=== PATIENT | male | born 1955 | race African-American/Black ===

== ENCOUNTER 2019-10-04 15:03 | Inpatient (IN) ==
[2019-10-04 15:32] LABS: Basophils % 0.1 % (0.0-0.8); Hematocrit 41.9 VOL% (42.0-52.0); Hemoglobin 14.1 GM/DL (14.0-18.0); Immature Granulocytes % 0.9 %; Immature Granulocytes Absolute 0.16 #; Lymphocytes # 0.4 10*3/uL (1.4-4.0); Lymphocytes % 2.2 % (21.2-54.2); Mean Corpuscular HGB Conc 33.7 GM/DL (32-36); Mean Corpuscular Volume 102.9 FL (87-102); Mean Platelet Volume 9.8 FL (9.6-12.0); Monocytes % 5.6 % (1.7-12.7); Neutrophils % 91.2 % (38.7-73.9); Platelet Count 261 T/CUMM (130-400); Red Blood Count 4.07 MC/CUMM (3.8-5.5); Red Cell Distribution Width 11.4 % (9.3-17.3)
[2019-10-04] MEDS ORDERED: ASPIRIN 325 MG TABLET PO STA (15:36)
[2019-10-04] MEDS ORDERED: ALBUTEROL/IPRATROPIUM 3 ML NEB RESP TX STA (15:36)
[2019-10-04 15:43] LABS: INR 1.1; PT Patient Result 11.4 SECS (9.6-12.2); Partial Thromboplastin Time 29.7 SECS (20.8-36.0)
[2019-10-04 16:03] LABS: Albumin 2.9 G/DL (3.4-5.0); Bilirubin,Total 1.3 MG/DL (0.2-1.0); Calcium 9.1 MG/DL (8.5-10.1); Osmolality,Calculated 263.7 MOS/KG (273-304); Thyroid Stimulating Hormone 0.979 uIU/ml (0.358-3.74); Total Protein 7.8 G/DL (6.4-8.3)
[2019-10-04] MEDS ORDERED: VANCOMYCIN INJ 1,000 MG in SODIUM CHLORIDE 0.9% 250 ML IV STA (16:08)
[2019-10-04] MEDS ORDERED: PIPERACILLIN/TAZOBACTAM 3,375 MG in SODIUM CHLORIDE 0.9% 100 ML IV STA (16:08)
[2019-10-04] MEDS ORDERED: SODIUM CHLORIDE 0.9% 1,000 ML IV STA ×2 (16:10→17:48)
[2019-10-04 17:16] LABS: Band Neutrophils 1 % (0-10); Lymphocytes 2 % (20-55); Macrocytosis 2+; Platelet Estimate Normal; Segmented Neutrophils 91 % (50-85); Total Cells Counted 100
[2019-10-04] MEDS ORDERED: ALBUTEROL 2.5 MG/3 ML NEB RESP TX PRN (18:22)
[2019-10-04] MEDS ORDERED: LEVALBUTEROL 0.63 MG/3 ML NEB RESP TX PRN (18:56)
[2019-10-04 18:59] LABS: Hematocrit 37.9 VOL% (42.0-52.0); Hemoglobin 12.5 GM/DL (14.0-18.0)
[2019-10-04 20:02] LABS: Apearance,Urine CLOUDY (Clear); Bacteria,Urine Occasional /HPF (Few); Bilirubin,Urine Negative (Negative); Blood, Urine Large mg/dL (Negative); Glucose,Urine (UA) Negative (Negative); Ketones,Urine Negative (Negative); Mucus,Urine Occasional /LPF (Occasional); Nitrite,Urine Positive (Negative); Protein,Urine 30 MG/DL; RBC,Urine 27 /HPF (0-4); Squamous Epithelial Cell,Urine Occasional /HPF (0-10); Urine Color Yellow (Yellow); Urine Urobilinogen < 2.0 EU/DL (0.2-1.0); WBC,Urine 109 /HPF (0-6)
[2019-10-04 20:35] LABS: Barbiturates Screen,Urine Negative (Negative); Benzodiazepines Screen,Urine Negative (Negative); Cannabinoid Screen,Urine Negative (Negative); Opiate Screen,Urine Negative (Negative); Phencyclidine Screen,Urine Negative (Negative)
[2019-10-04] MEDS: LEVALBUTEROL 0.63 MG/3 ML NEB RESP TX SCH ×2 (21:05→23:56)
[2019-10-04 21:06] LABS: ABG Base Excess -5.6 MMOL/L (-2.5-2.5); ABG HCO3 19.7 MMOL/L (20-26); ABG PCO2 37.9 MM HG (35-48); ABG PH 7.333 (7.35-7.45); ABG PO2 52.7 MM HG (80-95); ABG TCO2 20.8 MMOL/L (23-27)
[2019-10-04] MEDS ORDERED: LIDOCAINE 2% 20 ML VIAL ONE (21:09)
[2019-10-04] MEDS ORDERED: HYDROmorphone 2 MG/1 ML VIAL IV ONE (21:28)
[2019-10-04] MEDS: SODIUM CHLORIDE 0.9% 1,000 ML IV SCH (21:32)
[2019-10-04] MEDS ORDERED: SODIUM CHLORIDE 0.9% 500 ML IV ONE ×2 (21:32→21:58)
[2019-10-04] MEDS: LEVOFLOXACIN INJ 750 MG in PREMIX 1 EACH IV SCH (22:08)
[2019-10-04] MEDS: PANTOPRAZOLE 40 MG VIAL IV SCH (22:08)
[2019-10-04] MEDS: NOREPINEPHRINE 8 MG in SODIUM CHLORIDE 0.9% 242 ML IV PRN (23:57)
[2019-10-05 01:02] LABS: Hematocrit 38.9 VOL% (42.0-52.0); Hemoglobin 12.9 GM/DL (14.0-18.0)
[2019-10-05] MEDS: ACETAMINOPHEN 325 MG TABLET PO PRN (01:04)
[2019-10-05] MEDS: SODIUM CHLORIDE 0.9% 1,000 ML IV SCH ×4 (03:37→21:56)
[2019-10-05] MEDS: LEVALBUTEROL 0.63 MG/3 ML NEB RESP TX SCH ×6 (04:07→23:05)
[2019-10-05 05:59] LABS: Hematocrit 39.2 VOL% (42.0-52.0); Hemoglobin 12.6 GM/DL (14.0-18.0)
[2019-10-05 06:02] LABS: Basophils # 0.1 10*3/uL (0.0-0.2); Basophils % 0.2 % (0.0-0.8); Hemoglobin 12.6 GM/DL (14.0-18.0); Immature Granulocytes Absolute 0.85 #; Lymphocytes # 0.8 10*3/uL (1.4-4.0); Mean Corpuscular HGB Conc 31.5 GM/DL (32-36); Mean Corpuscular Volume 110.2 FL (87-102); Mean Platelet Volume 10.2 FL (9.6-12.0); Neutrophils % 89.8 % (38.7-73.9); Platelet Count 229 T/CUMM (130-400); Red Blood Count 3.63 MC/CUMM (3.8-5.5); Red Cell Distribution Width 11.7 % (9.3-17.3); White Blood Count 28.3 T/CUMM (4-12)
[2019-10-05 06:26] LABS: Alanine Aminotransferase 10 U/L (16-61); Albumin 2.2 G/DL (3.4-5.0); Alkaline Phosphatase 91 U/L (45-117); Aspartate Amino Transferase 19 U/L (0-37); Blood Urea Nitrogen 16 MG/DL (7-18); Calcium 8.3 MG/DL (8.5-10.1); Estimated Glom Filtration Rate 47 ML/MIN; Glucose 102 MG/DL (74-106); HDL Cholesterol 36 MG/DL (40-60); Osmolality,Calculated 270.1 MOS/KG (273-304); Risk Ratio 2.72; Total Protein 7.2 G/DL (6.4-8.3); Triglycerides 63 MG/DL (2-150); VLDL CHOLESTEROL 12.6 MG/DL
[2019-10-05] MEDS ORDERED: MAGNESIUM SULF RIDER 50 ML IV ONE (06:32)
[2019-10-05 06:46] LABS: Band Neutrophils 31 % (0-10); Lymphocytes 6 % (20-55); Metamyelocytes 2 %; Segmented Neutrophils 59 % (50-85); Total Cells Counted 100
[2019-10-05 06:47] LABS: Anisocytosis 1+; Macrocytosis 2+; Platelet Estimate Normal
[2019-10-05 06:48] LABS: Smudge Cells Few
[2019-10-05] MEDS: PANTOPRAZOLE 40 MG VIAL IV SCH ×2 (08:07→21:15)
[2019-10-05 09:58] LABS: Amylase,Pleural Fluid 143 U/L; Total Protein,Pleural Fluid 6.3 G/DL
[2019-10-05] MEDS: metroNIDAZOLE INJ 500 MG in PREMIX 1 EACH IV SCH ×2 (10:10→18:24)
[2019-10-05] MEDS: MAGNESIUM SULF RIDER 2 GM in PREMIX 1 EACH IV PRN (10:12)
[2019-10-05 10:21] LABS: Lymphocytes,Pleural Fluid 96 %; Monocytes,Pleural Fluid 2 %; Neutrophils,Pleural Fluid 2 %; RBC,Pleural Fluid 69731 T/CUMM
[2019-10-05 11:11] LABS: Hematocrit 40.1 VOL% (42.0-52.0); Hemoglobin 12.6 GM/DL (14.0-18.0)
[2019-10-05] MEDS ORDERED: LORazepam 2 MG/1 ML VIAL IV PRN (11:20)
[2019-10-05] MEDS: THIAMINE 100 MG TABLET PO SCH (12:06)
[2019-10-05] MEDS: FOLIC ACID 1 MG TABLET PO SCH (12:06)
[2019-10-05] MEDS: MULTIVITAMIN (CENTRUM) TABLET PO SCH (12:06)
[2019-10-05] MEDS ORDERED: VANCOMYCIN INJ 1,000 MG in SODIUM CHLORIDE 0.9% 250 ML IV SCH (17:00)
[2019-10-05] MEDS: ENOXAPARIN 40 MG/0.4 ML SYRINGE SUBCUT SCH (21:15)
[2019-10-05] MEDS: LEVOFLOXACIN INJ 750 MG in PREMIX 1 EACH IV SCH (21:23)
[2019-10-06 01:20] LABS: Basophils # 0.1 10*3/uL (0.0-0.2); Basophils % 0.2 % (0.0-0.8); Hematocrit 35.9 VOL% (42.0-52.0); Hemoglobin 11.8 GM/DL (14.0-18.0); Immature Granulocytes % 0.8 %; Lymphocytes # 1.3 10*3/uL (1.4-4.0); Lymphocytes % 5.5 % (21.2-54.2); Mean Corpuscular HGB Conc 32.9 GM/DL (32-36); Mean Corpuscular Volume 106.8 FL (87-102); Mean Platelet Volume 9.8 FL (9.6-12.0); Monocytes % 8.4 % (1.7-12.7); Neutrophils % 85.1 % (38.7-73.9); Platelet Count 214 T/CUMM (130-400); Red Blood Count 3.36 MC/CUMM (3.8-5.5); Red Cell Distribution Width 11.6 % (9.3-17.3); White Blood Count 24.2 T/CUMM (4-12)
[2019-10-06 01:38] LABS: Albumin 1.6 G/DL (3.4-5.0); Bilirubin,Total 0.6 MG/DL (0.2-1.0); Calcium 7.9 MG/DL (8.5-10.1); Total Protein 5.8 G/DL (6.4-8.3)
[2019-10-06 01:47] LABS: Band Neutrophils 1 % (0-10); Lymphocytes 3 % (20-55); Platelet Estimate Normal; Segmented Neutrophils 95 % (50-85); Total Cells Counted 100
[2019-10-06] MEDS ORDERED: AMIODARONE INJ 150 MG in DEXTROSE 5% 100 ML IV ONE (01:50)
[2019-10-06] MEDS ORDERED: AMIODARONE 150 MG/3 ML VIAL ONE (01:55)
[2019-10-06 01:57] LABS: Macrocytosis Slight; Polychromasia Slight
[2019-10-06] MEDS: metroNIDAZOLE INJ 500 MG in PREMIX 1 EACH IV SCH ×3 (02:15→17:40)
[2019-10-06] MEDS: POTASSIUM CHLORIDE RIDER 10 MEQ in PREMIX 1 EACH IV PRN ×2 (02:39→04:12)
[2019-10-06] MEDS ORDERED: AMIODARONE INJ 450 MG in DEXTROSE 5% 241 ML IV SCH (03:00)
[2019-10-06] MEDS: LEVALBUTEROL 0.63 MG/3 ML NEB RESP TX SCH ×6 (03:13→22:50)
[2019-10-06] MEDS: NOREPINEPHRINE 8 MG in SODIUM CHLORIDE 0.9% 242 ML IV PRN (04:15)
[2019-10-06] MEDS: ACETAMINOPHEN 325 MG TABLET PO PRN ×2 (04:55→09:06)
[2019-10-06] MEDS: SODIUM CHLORIDE 0.9% 1,000 ML IV SCH ×3 (05:06→22:08)
[2019-10-06] MEDS ORDERED: PANTOPRAZOLE 40 MG VIAL IV SCH (09:00)
[2019-10-06] MEDS: AMIODARONE INJ 450 MG in DEXTROSE 5% 241 ML IV SCH (09:05)
[2019-10-06] MEDS: MEROPENEM 500 MG in SODIUM CHLORIDE 0.9% 100 ML IV SCH ×3 (09:05→20:33)
[2019-10-06] MEDS: FOLIC ACID 1 MG TABLET PO SCH (09:06)
[2019-10-06] MEDS: THIAMINE 100 MG TABLET PO SCH (09:06)
[2019-10-06] MEDS: MULTIVITAMIN (CENTRUM) TABLET PO SCH (09:06)
[2019-10-06] MEDS: ENOXAPARIN 40 MG/0.4 ML SYRINGE SUBCUT SCH (20:32)
[2019-10-06] MEDS: LEVOFLOXACIN INJ 750 MG in PREMIX 1 EACH IV SCH (20:36)
[2019-10-07] MEDS: AMIODARONE INJ 450 MG in DEXTROSE 5% 241 ML IV SCH (02:17)
[2019-10-07] MEDS: metroNIDAZOLE INJ 500 MG in PREMIX 1 EACH IV SCH ×3 (02:18→17:39)
[2019-10-07] MEDS: LEVALBUTEROL 0.63 MG/3 ML NEB RESP TX SCH ×5 (02:59→19:48)
[2019-10-07] MEDS: MEROPENEM 500 MG in SODIUM CHLORIDE 0.9% 100 ML IV SCH ×4 (03:30→21:00)
[2019-10-07 05:51] LABS: Basophils % 0.1 % (0.0-0.8); Eosinophils # 0.1 10*3/uL (0.0-0.87); Eosinophils % 0.4 % (0.00-10.9); Hemoglobin 11.7 GM/DL (14.0-18.0); Immature Granulocytes % 0.5 %; Immature Granulocytes Absolute 0.07 #; Lymphocytes # 1.2 10*3/uL (1.4-4.0); Lymphocytes % 8.4 % (21.2-54.2); Mean Corpuscular HGB Conc 32.5 GM/DL (32-36); Mean Corpuscular Volume 105.9 FL (87-102); Mean Platelet Volume 10.3 FL (9.6-12.0); Monocytes % 11.1 % (1.7-12.7); Neutrophils % 79.5 % (38.7-73.9); Platelet Count 214 T/CUMM (130-400); Red Cell Distribution Width 11.9 % (9.3-17.3); White Blood Count 14.7 T/CUMM (4-12)
[2019-10-07 06:13] LABS: Albumin 1.7 G/DL (3.4-5.0); Bilirubin,Total 1.4 MG/DL (0.2-1.0); Calcium 8.5 MG/DL (8.5-10.1); Osmolality,Calculated 274.7 MOS/KG (273-304); Total Protein 5.8 G/DL (6.4-8.3)
[2019-10-07] MEDS: SODIUM CHLORIDE 0.9% 1,000 ML IV SCH (06:36)
[2019-10-07] MEDS: MAGNESIUM SULF RIDER 2 GM in PREMIX 1 EACH IV PRN (07:20)
[2019-10-07] MEDS: MULTIVITAMIN (CENTRUM) TABLET PO SCH (08:55)
[2019-10-07] MEDS: FOLIC ACID 1 MG TABLET PO SCH (08:55)
[2019-10-07] MEDS: THIAMINE 100 MG TABLET PO SCH (08:55)
[2019-10-07] MEDS: PANTOPRAZOLE 40 MG TABLET PO SCH (08:55)
[2019-10-07] MEDS: AMIODARONE 200 MG TABLET PO SCH ×2 (10:15→21:13)
[2019-10-07 15:01] LABS: CEA, Pleural Fluid 53 ng/mL
[2019-10-07] MEDS: ENOXAPARIN 40 MG/0.4 ML SYRINGE SUBCUT SCH (21:15)
[2019-10-08] MEDS: LEVALBUTEROL 0.63 MG/3 ML NEB RESP TX SCH ×7 (00:31→23:46)
[2019-10-08] MEDS: metroNIDAZOLE INJ 500 MG in PREMIX 1 EACH IV SCH ×3 (02:00→17:18)
[2019-10-08] MEDS: MEROPENEM 500 MG in SODIUM CHLORIDE 0.9% 100 ML IV SCH ×4 (03:27→21:27)
[2019-10-08 05:39] LABS: Basophils % 0.2 % (0.0-0.8); Eosinophils # 0.1 10*3/uL (0.0-0.87); Eosinophils % 0.9 % (0.00-10.9); Hematocrit 37.6 VOL% (42.0-52.0); Hemoglobin 12.2 GM/DL (14.0-18.0); Immature Granulocytes % 0.9 %; Lymphocytes # 1.4 10*3/uL (1.4-4.0); Lymphocytes % 12.9 % (21.2-54.2); Mean Corpuscular HGB Conc 32.4 GM/DL (32-36); Mean Corpuscular Volume 107.7 FL (87-102); Mean Platelet Volume 10.2 FL (9.6-12.0); Monocytes % 15.9 % (1.7-12.7); Neutrophils % 69.2 % (38.7-73.9); Platelet Count 225 T/CUMM (130-400); Red Blood Count 3.49 MC/CUMM (3.8-5.5); Red Cell Distribution Width 12.1 % (9.3-17.3); White Blood Count 10.9 T/CUMM (4-12)
[2019-10-08 06:03] LABS: Eosinophils 2 % (0-10); Hypochromasia 1+; Lymphocytes 15 % (20-55); Macrocytosis Slight; Segmented Neutrophils 71 % (50-85); Total Cells Counted 100
[2019-10-08 06:12] LABS: Calcium 8.7 MG/DL (8.5-10.1); Osmolality,Calculated 273.7 MOS/KG (273-304)
[2019-10-08] MEDS ORDERED: PROMETHAZINE 25 MG/1 ML VIAL IM ONE (07:00)
[2019-10-08] MEDS ORDERED: MEPERIDINE 50 MG/1 ML VIAL IM ONE (07:00)
[2019-10-08] MEDS ORDERED: MIDAZOLAM 2 MG/2 ML VIAL ONE (07:21)
[2019-10-08] MEDS ORDERED: MIDAZOLAM 2 MG/2 ML VIAL IV ONE (07:30)
[2019-10-08] MEDS ORDERED: LIDOCAINE 1% 20 ML VIAL MISC INJ ONE (07:30)
[2019-10-08] MEDS ORDERED: LIDOCAINE 2% VISCOUS 100 ML BOTTLE SWISH/SPIT ONE (07:30)
[2019-10-08] MEDS ORDERED: LIDOCAINE 2% 20 ML VIAL RESP TX ONE (07:30)
[2019-10-08] MEDS: MULTIVITAMIN (CENTRUM) TABLET PO SCH (09:22)
[2019-10-08] MEDS: THIAMINE 100 MG TABLET PO SCH (09:22)
[2019-10-08] MEDS: AMIODARONE 200 MG TABLET PO SCH ×2 (09:22→21:26)
[2019-10-08] MEDS: FOLIC ACID 1 MG TABLET PO SCH (09:22)
[2019-10-08] MEDS: PANTOPRAZOLE 40 MG TABLET PO SCH (09:22)
[2019-10-08] MEDS: LEVOFLOXACIN 750 MG TABLET PO SCH (09:22)
[2019-10-08] MEDS ORDERED: DOXYCYCLINE HYCLATE INJ 200 MG, LIDOCAINE 1% INJ 20 ML in STERILE WATER INJ 30 ML INTRAPLEUR ONE (13:00)
[2019-10-08] MEDS ORDERED: MAGNESIUM HYDROXIDE SUSP 30 ML UDCUP PO ONE (14:34)
[2019-10-08] MEDS: ENOXAPARIN 40 MG/0.4 ML SYRINGE SUBCUT SCH (21:26)
[2019-10-09] MEDS: MEROPENEM 500 MG in SODIUM CHLORIDE 0.9% 100 ML IV SCH ×4 (02:08→21:27)
[2019-10-09] MEDS: metroNIDAZOLE INJ 500 MG in PREMIX 1 EACH IV SCH ×3 (03:02→17:24)
[2019-10-09] MEDS: LEVALBUTEROL 0.63 MG/3 ML NEB RESP TX SCH ×5 (03:49→19:50)
[2019-10-09 04:51] LABS: Basophils % 0.2 % (0.0-0.8); Eosinophils # 0.2 10*3/uL (0.0-0.87); Eosinophils % 1.7 % (0.00-10.9); Hematocrit 35.9 VOL% (42.0-52.0); Hemoglobin 11.6 GM/DL (14.0-18.0); Immature Granulocytes % 0.7 %; Immature Granulocytes Absolute 0.07 #; Lymphocytes # 1.7 10*3/uL (1.4-4.0); Lymphocytes % 17.1 % (21.2-54.2); Mean Corpuscular HGB Conc 32.3 GM/DL (32-36); Mean Corpuscular Volume 106.2 FL (87-102); Mean Platelet Volume 10.4 FL (9.6-12.0); Monocytes % 20.7 % (1.7-12.7); Neutrophils % 59.6 % (38.7-73.9); Platelet Count 244 T/CUMM (130-400); Red Blood Count 3.38 MC/CUMM (3.8-5.5); Red Cell Distribution Width 12.4 % (9.3-17.3); White Blood Count 10.1 T/CUMM (4-12)
[2019-10-09 05:11] LABS: Band Neutrophils 2 % (0-10); Eosinophils 6 % (0-10); Lymphocytes 12 % (20-55); Segmented Neutrophils 67 % (50-85); Total Cells Counted 100
[2019-10-09 05:12] LABS: Hypochromasia 1+; Macrocytosis Slight; Target Cells Slight
[2019-10-09 05:20] LABS: Calcium 8.8 MG/DL (8.5-10.1); Osmolality,Calculated 274.7 MOS/KG (273-304)
[2019-10-09] MEDS: AMIODARONE 200 MG TABLET PO SCH ×2 (08:54→21:27)
[2019-10-09] MEDS: LEVOFLOXACIN 750 MG TABLET PO SCH (08:54)
[2019-10-09] MEDS: PANTOPRAZOLE 40 MG TABLET PO SCH (08:54)
[2019-10-09] MEDS: MULTIVITAMIN (CENTRUM) TABLET PO SCH (08:54)
[2019-10-09] MEDS: THIAMINE 100 MG TABLET PO SCH (08:54)
[2019-10-09] MEDS: FOLIC ACID 1 MG TABLET PO SCH (08:55)
[2019-10-09] MEDS ORDERED: DOXYCYCLINE HYCLATE INJ 200 MG, LIDOCAINE 1% INJ 20 ML in STERILE WATER INJ 30 ML INTRAPLEUR ONE (09:00)
[2019-10-09] MEDS: ACETAMINOPHEN 325 MG TABLET PO PRN (13:27)
[2019-10-09] MEDS: ONDANSETRON 4 MG/2 ML VIAL IV PRN (18:55)
[2019-10-09] MEDS: ENOXAPARIN 40 MG/0.4 ML SYRINGE SUBCUT SCH (21:27)
[2019-10-10] MEDS: LEVALBUTEROL 0.63 MG/3 ML NEB RESP TX SCH ×7 (00:46→23:50)
[2019-10-10] MEDS: ONDANSETRON 4 MG/2 ML VIAL IV PRN ×2 (01:21→08:02)
[2019-10-10] MEDS: MEROPENEM 500 MG in SODIUM CHLORIDE 0.9% 100 ML IV SCH ×4 (01:29→21:10)
[2019-10-10] MEDS: metroNIDAZOLE INJ 500 MG in PREMIX 1 EACH IV SCH ×3 (02:04→18:02)
[2019-10-10] MEDS: FOLIC ACID 1 MG TABLET PO SCH (08:06)
[2019-10-10] MEDS: LEVOFLOXACIN 750 MG TABLET PO SCH (08:06)
[2019-10-10] MEDS: AMIODARONE 200 MG TABLET PO SCH ×2 (08:06→21:13)
[2019-10-10] MEDS: PANTOPRAZOLE 40 MG TABLET PO SCH (08:06)
[2019-10-10] MEDS: MULTIVITAMIN (CENTRUM) TABLET PO SCH (08:06)
[2019-10-10] MEDS: THIAMINE 100 MG TABLET PO SCH (08:06)
[2019-10-10] MEDS: ENOXAPARIN 40 MG/0.4 ML SYRINGE SUBCUT SCH (21:13)
[2019-10-11] MEDS: metroNIDAZOLE INJ 500 MG in PREMIX 1 EACH IV SCH ×2 (01:10→09:34)
[2019-10-11] MEDS: MEROPENEM 500 MG in SODIUM CHLORIDE 0.9% 100 ML IV SCH ×3 (02:08→14:00)
[2019-10-11] MEDS: LEVALBUTEROL 0.63 MG/3 ML NEB RESP TX SCH ×4 (03:50→15:05)
[2019-10-11] MEDS: AMIODARONE 200 MG TABLET PO SCH (08:19)
[2019-10-11] MEDS: THIAMINE 100 MG TABLET PO SCH (08:19)
[2019-10-11] MEDS: LEVOFLOXACIN 750 MG TABLET PO SCH (08:19)
[2019-10-11] MEDS: FOLIC ACID 1 MG TABLET PO SCH (08:20)
[2019-10-11] MEDS: MULTIVITAMIN (CENTRUM) TABLET PO SCH (08:20)
[2019-10-11] MEDS: PANTOPRAZOLE 40 MG TABLET PO SCH (08:24)
[2019-10-11 12:33] VITALS: BP 119/75
== END 2019-10-11 16:31 | disposition home or self-care (01) | DRG 180 ==
LOC: N.ED 15:03 → N.EDINP 18:20 → SUATTDRO 18:20 → N.ICU 20:25 → N.5E 10-07 12:37
PROVIDERS: ADMIT Internal Medicine; ATTEND Internal Medicine

== ENCOUNTER 2020-07-04 13:15 | Inpatient (IN) ==
[2020-07-04] MEDS ORDERED: ALBUTEROL/IPRATROPIUM 3 ML NEB RESP TX STA (13:41)
[2020-07-04] MEDS ORDERED: methylPREDNISolone SOD SUC 125 MG/2 ML VIAL IV STA (13:41)
[2020-07-04 14:18] LABS: Basophils % 0.1 % (0.0-0.8); Eosinophils % 0.3 % (0.00-10.9); Hematocrit 32.3 VOL% (42.0-52.0); Hemoglobin 10.7 GM/DL (14.0-18.0); Immature Granulocytes % 0.5 %; Immature Granulocytes Absolute 0.06 #; Lymphocytes # 0.8 10*3/uL (1.4-4.0); Lymphocytes % 6.4 % (21.2-54.2); Mean Corpuscular HGB Conc 33.1 GM/DL (32-36); Mean Corpuscular Volume 104.9 FL (87-102); Mean Platelet Volume 10.1 FL (9.6-12.0); Monocytes % 8.2 % (1.7-12.7); Neutrophils % 84.5 % (38.7-73.9); Platelet Count 359 T/CUMM (130-400); Red Blood Count 3.08 MC/CUMM (3.8-5.5); Red Cell Distribution Width 13.6 % (9.3-17.3); White Blood Count 12.1 T/CUMM (4-12)
[2020-07-04 14:40] LABS: Albumin 2.8 G/DL (3.4-5.0); Bilirubin,Total 0.4 MG/DL (0.2-1.0); Calcium 9.9 MG/DL (8.5-10.1); Osmolality,Calculated 255.1 MOS/KG (273-304); Total Protein 8.7 G/DL (6.4-8.3)
[2020-07-04] MEDS ORDERED: ONDANSETRON 4 MG/2 ML VIAL IV PRN (16:39)
[2020-07-04] MEDS ORDERED: GLUCAGON 1 MG VIAL IM PRN (16:39)
[2020-07-04] MEDS ORDERED: DEXTROSE 50% 25 GM/50 ML SYRINGE IV PRN (16:39)
[2020-07-04] MEDS ORDERED: ACETAMINOPHEN 325 MG TABLET PO PRN (16:39)
[2020-07-04] MEDS ORDERED: hydrALAZINE 20 MG/1 ML VIAL IV PRN (16:44)
[2020-07-04] MEDS: methylPREDNISolone SOD SUC 40 MG/1 ML VIAL IV SCH (16:53)
[2020-07-04] MEDS ORDERED: AZITHROMYCIN INJ 500 MG in SODIUM CHLORIDE 0.9% 250 ML IV SCH (17:00)
[2020-07-04] MEDS: ENOXAPARIN 40 MG/0.4 ML SYRINGE SUBCUT SCH (17:02)
[2020-07-04] MEDS: cefTRIAXone 1,000 MG in SYRINGE 1 EACH IV SCH (17:05)
[2020-07-04] MEDS ORDERED: PROCHLORPERAZINE 10 MG TABLET PO PRN (18:18)
[2020-07-04] MEDS: ALBUTEROL/IPRATROPIUM 3 ML NEB RESP TX SCH (19:50)
[2020-07-04] MEDS: AMIODARONE 200 MG TABLET PO SCH (20:36)
[2020-07-05] MEDS: methylPREDNISolone SOD SUC 40 MG/1 ML VIAL IV SCH ×3 (00:23→19:03)
[2020-07-05] MEDS: ALBUTEROL/IPRATROPIUM 3 ML NEB RESP TX SCH ×4 (01:00→19:15)
[2020-07-05 05:18] LABS: Hematocrit 31.7 VOL% (42.0-52.0); Hemoglobin 10.3 GM/DL (14.0-18.0); Immature Granulocytes % 0.4 %; Immature Granulocytes Absolute 0.03 #; Lymphocytes # 0.8 10*3/uL (1.4-4.0); Mean Corpuscular HGB Conc 32.5 GM/DL (32-36); Mean Corpuscular Volume 106.4 FL (87-102); Mean Platelet Volume 9.9 FL (9.6-12.0); Monocytes % 1.9 % (1.7-12.7); Neutrophils % 86.7 % (38.7-73.9); Platelet Count 351 T/CUMM (130-400); Red Blood Count 2.98 MC/CUMM (3.8-5.5); Red Cell Distribution Width 13.4 % (9.3-17.3)
[2020-07-05 05:42] LABS: Albumin 2.5 G/DL (3.4-5.0); Bilirubin,Total 0.9 MG/DL (0.2-1.0); Calcium 10.4 MG/DL (8.5-10.1); Osmolality,Calculated 266.4 MOS/KG (273-304); Total Protein 8.3 G/DL (6.4-8.3)
[2020-07-05] MEDS: MULTIVITAMIN (CENTRUM) TABLET PO SCH (09:16)
[2020-07-05] MEDS: METOPROLOL SUCCINATE XL 25 MG TABLET PO SCH (09:16)
[2020-07-05] MEDS: AMIODARONE 200 MG TABLET PO SCH ×2 (09:16→21:30)
[2020-07-05] MEDS: PANTOPRAZOLE 40 MG TABLET PO SCH (09:16)
[2020-07-05] MEDS: DOXYCYCLINE HYCLATE INJ 100 MG in SODIUM CHLORIDE 0.9% 100 ML IV SCH (15:51)
[2020-07-05] MEDS: cefTRIAXone 1,000 MG in SYRINGE 1 EACH IV SCH ×2 (17:01→19:03)
[2020-07-05] MEDS: ENOXAPARIN 40 MG/0.4 ML SYRINGE SUBCUT SCH (19:07)
[2020-07-05] MEDS: CLORAZEPATE 3.75 MG TABLET PO PRN (21:31)
[2020-07-06] MEDS: methylPREDNISolone SOD SUC 40 MG/1 ML VIAL IV SCH ×3 (00:33→22:29)
[2020-07-06] MEDS: DOXYCYCLINE HYCLATE INJ 100 MG in SODIUM CHLORIDE 0.9% 100 ML IV SCH ×2 (01:10→17:22)
[2020-07-06] MEDS: ALBUTEROL/IPRATROPIUM 3 ML NEB RESP TX SCH ×4 (01:28→18:58)
[2020-07-06 06:35] LABS: Hemoglobin 10.2 GM/DL (14.0-18.0); Immature Granulocytes % 0.6 %; Immature Granulocytes Absolute 0.07 #; Lymphocytes # 0.6 10*3/uL (1.4-4.0); Mean Corpuscular HGB Conc 32.9 GM/DL (32-36); Mean Corpuscular Volume 107.6 FL (87-102); Mean Platelet Volume 9.9 FL (9.6-12.0); Monocytes % 3.5 % (1.7-12.7); Neutrophils % 90.9 % (38.7-73.9); Platelet Count 401 T/CUMM (130-400); Red Blood Count 2.88 MC/CUMM (3.8-5.5); Red Cell Distribution Width 13.7 % (9.3-17.3); White Blood Count 11.1 T/CUMM (4-12)
[2020-07-06 06:58] LABS: Calcium 10.1 MG/DL (8.5-10.1); Osmolality,Calculated 268.2 MOS/KG (273-304)
[2020-07-06 07:17] LABS: Hypochromasia 1+; Lymphocytes 4 % (20-55); Platelet Estimate Adequate; Segmented Neutrophils 92 % (50-85); Total Cells Counted 100
[2020-07-06] MEDS: PANTOPRAZOLE 40 MG TABLET PO SCH (08:58)
[2020-07-06] MEDS: METOPROLOL SUCCINATE XL 25 MG TABLET PO SCH (08:58)
[2020-07-06] MEDS: MULTIVITAMIN (CENTRUM) TABLET PO SCH (08:58)
[2020-07-06] MEDS: AMIODARONE 200 MG TABLET PO SCH ×2 (08:58→22:29)
[2020-07-06] MEDS: ENOXAPARIN 40 MG/0.4 ML SYRINGE SUBCUT SCH (17:21)
[2020-07-06] MEDS: cefTRIAXone 1,000 MG in SYRINGE 1 EACH IV SCH (19:16)
[2020-07-06] MEDS ORDERED: cefTRIAXone 1,000 MG in SYRINGE 1 EACH IV SCH (21:00)
[2020-07-06] MEDS: CLORAZEPATE 3.75 MG TABLET PO PRN (22:29)
[2020-07-07] MEDS: ALBUTEROL/IPRATROPIUM 3 ML NEB RESP TX SCH ×3 (01:07→14:23)
[2020-07-07] MEDS: DOXYCYCLINE HYCLATE INJ 100 MG in SODIUM CHLORIDE 0.9% 100 ML IV SCH (03:21)
[2020-07-07] MEDS: MULTIVITAMIN (CENTRUM) TABLET PO SCH (09:02)
[2020-07-07] MEDS: METOPROLOL SUCCINATE XL 25 MG TABLET PO SCH (09:03)
[2020-07-07] MEDS: AMIODARONE 200 MG TABLET PO SCH (09:04)
[2020-07-07] MEDS: methylPREDNISolone SOD SUC 40 MG/1 ML VIAL IV SCH (09:05)
[2020-07-07] MEDS: PANTOPRAZOLE 40 MG TABLET PO SCH (09:05)
[2020-07-07 11:20] VITALS: BP 135/82
[2020-07-07] MEDS ORDERED: ALBUTEROL 2.5 MG/3 ML NEB RESP TX PRN (13:00)
== END 2020-07-07 15:30 | disposition home health service (06) | DRG 140 ==
LOC: N.ED 13:15 → SUPCPDRO 16:39 → N.EDINP 16:39 → SUATTDRO 16:39 → N.4E 16:53
PROVIDERS: ADMIT Emergency Medicine; ATTEND Internal Medicine

== ENCOUNTER 2020-08-08 23:40 | Inpatient (IN) ==
[2020-08-09] MEDS ORDERED: ONDANSETRON 4 MG/2 ML VIAL IV PRN (01:07)
[2020-08-09] MEDS ORDERED: DEXTROSE 50% 25 GM/50 ML VIAL IV PRN (01:07)
[2020-08-09 02:05] LABS: Hematocrit 32.3 VOL% (42.0-52.0); Hemoglobin 10.4 GM/DL (14.0-18.0); Immature Granulocytes % 0.7 %; Immature Granulocytes Absolute 0.06 #; Lymphocytes # 0.3 10*3/uL (1.4-4.0); Lymphocytes % 3.7 % (21.2-54.2); Mean Corpuscular HGB Conc 32.2 GM/DL (32-36); Mean Corpuscular Volume 104.2 FL (87-102); Mean Platelet Volume 9.6 FL (9.6-12.0); Monocytes % 1.6 % (1.7-12.7); Platelet Count 295 T/CUMM (130-400); Red Cell Distribution Width 14.5 % (9.3-17.3); White Blood Count 8.4 T/CUMM (4-12)
[2020-08-09 02:28] LABS: Alanine Aminotransferase 21 U/L (16-61); Albumin 2.5 G/DL (3.4-5.0); Alkaline Phosphatase 98 U/L (45-117); Aspartate Amino Transferase 35 U/L (0-37); Bilirubin,Total < 0.39 MG/DL (0.2-1.0); Blood Urea Nitrogen 12 MG/DL (7-18); Calcium 9.6 MG/DL (8.5-10.1); Carbon Dioxide 31 MMOL/L (21-32); Estimated Glom Filtration Rate 104 ML/MIN; Glucose 117 MG/DL (74-106); Osmolality,Calculated 264.5 MOS/KG (273-304); Potassium 4.2 MMOL/L (3.5-5.1); Sodium 132 MMOL/L (136-145); Thyroid Stimulating Hormone 0.195 uIU/ml (0.358-3.74)
[2020-08-09 02:58] LABS: ABG Base Excess 5.5 MMOL/L (-2.5-2.5); ABG HCO3 29.1 MMOL/L (20-26); ABG Oxygen Saturation 85.1 % (95-100); ABG PCO2 51.2 MM HG (35-48); ABG PH 7.397 (7.35-7.45); ABG PO2 54.7 MM HG (80-95); ABG TCO2 28.6 MMOL/L (23-27); Allen Test Positive
[2020-08-09 03:28] LABS: Band Neutrophils 4 % (0-10); Lymphocytes 4 % (20-55); Nucleated Red Blood Cells 0 (0-5); Platelet Estimate Normal; Segmented Neutrophils 90 % (50-85); Total Cells Counted 100
[2020-08-09] MEDS ORDERED: ENOXAPARIN 60 MG/0.6 ML SYRINGE SUBCUT SCH (04:30)
[2020-08-09] MEDS ORDERED: ENOXAPARIN 40 MG/0.4 ML SYRINGE SUBCUT SCH (06:00)
[2020-08-09] MEDS: ENOXAPARIN 60 MG/0.6 ML SYRINGE SUBCUT SCH ×2 (06:27→17:23)
[2020-08-09] MEDS: ALBUTEROL/IPRATROPIUM 3 ML NEB RESP TX SCH ×3 (07:25→20:10)
[2020-08-09] MEDS: PANTOPRAZOLE 40 MG TABLET PO SCH (08:18)
[2020-08-09] MEDS: methylPREDNISolone SOD SUC 40 MG/1 ML VIAL IV SCH ×2 (09:25→17:22)
[2020-08-09] MEDS: cefTRIAXone 1,000 MG in SYRINGE 1 EACH IV SCH (17:23)
[2020-08-10] MEDS: ALBUTEROL/IPRATROPIUM 3 ML NEB RESP TX SCH ×4 (00:44→18:54)
[2020-08-10] MEDS: methylPREDNISolone SOD SUC 40 MG/1 ML VIAL IV SCH ×3 (02:17→18:20)
[2020-08-10] MEDS: ENOXAPARIN 60 MG/0.6 ML SYRINGE SUBCUT SCH ×2 (06:37→18:20)
[2020-08-10] MEDS: PANTOPRAZOLE 40 MG TABLET PO SCH (08:51)
[2020-08-10] MEDS: cefTRIAXone 1,000 MG in SYRINGE 1 EACH IV SCH (18:20)
[2020-08-11] MEDS: ALBUTEROL/IPRATROPIUM 3 ML NEB RESP TX SCH ×3 (00:27→13:10)
[2020-08-11] MEDS: methylPREDNISolone SOD SUC 40 MG/1 ML VIAL IV SCH (02:23)
[2020-08-11] MEDS: ENOXAPARIN 60 MG/0.6 ML SYRINGE SUBCUT SCH (06:16)
[2020-08-11] MEDS ORDERED: predniSONE 20 MG TABLET PO SCH (09:30)
[2020-08-11] MEDS: PANTOPRAZOLE 40 MG TABLET PO SCH (10:24)
[2020-08-11 11:29] VITALS: BP 120/80
[2020-08-11] MEDS ORDERED: MAGNESIUM HYDROXIDE SUSP 30 ML UDCUP PO PRN (14:14)
== END 2020-08-11 16:18 | disposition home or self-care (01) | DRG 133 ==
LOC: SUATTDRO 08-09 00:11 → N.4E 08-09 00:11
PROVIDERS: ADMIT Internal Medicine; ATTEND Internal Medicine Geriatric Medicine

== ENCOUNTER 2021-02-23 08:36 | Inpatient (IN) ==
[2021-02-23 09:20] LABS: Albumin 2.7 G/DL (3.4-5.0); Bilirubin,Total 0.4 MG/DL (0.2-1.0); Calcium 9.4 MG/DL (8.5-10.1); Osmolality,Calculated 267.1 MOS/KG (273-304); Potassium 3.8 MMOL/L (3.5-5.1); Total Protein 6.9 G/DL (6.4-8.2)
[2021-02-23] MEDS ORDERED: methylPREDNISolone SOD SUC 125 MG/2 ML VIAL IV STA (09:40)
[2021-02-23] MEDS ORDERED: ALBUTEROL/IPRATROPIUM 3 ML NEB RESP TX STA (09:40)
[2021-02-23] MEDS ORDERED: cefTRIAXone 1,000 MG in SODIUM CHLORIDE 0.9% 100 ML IV STA (09:40)
[2021-02-23] MEDS ORDERED: AZITHROMYCIN 250 MG TABLET PO STA (09:40)
[2021-02-23 09:46] LABS: Basophils % 0.1 % (0.0-0.8); Eosinophils # 0.1 10*3/uL (0.0-0.87); Hematocrit 36.4 VOL% (42.0-52.0); Hemoglobin 11.8 GM/DL (14.0-18.0); Immature Granulocytes % 0.4 %; Immature Granulocytes Absolute 0.03 #; Lymphocytes # 1.1 10*3/uL (1.4-4.0); Mean Corpuscular HGB Conc 32.4 GM/DL (32-36); Mean Corpuscular Volume 101.1 FL (87-102); Mean Platelet Volume 8.6 FL (9.6-12.0); Monocytes % 12.5 % (1.7-12.7); Platelet Count 322 T/CUMM (130-400); Red Cell Distribution Width 12.7 % (9.3-17.3); White Blood Count 6.9 T/CUMM (4-12)
[2021-02-23] MEDS ORDERED: MORPHINE 4 MG/1 ML VIAL IV PRN (11:48)
[2021-02-23] MEDS ORDERED: ACETAMINOPHEN 325 MG TABLET PO PRN (11:48)
[2021-02-23] MEDS ORDERED: GLUCAGON 1 MG VIAL IM PRN (11:48)
[2021-02-23] MEDS ORDERED: DEXTROSE 50% 25 GM/50 ML VIAL IV PRN (11:48)
[2021-02-23] MEDS ORDERED: DOCUSATE SODIUM 100 MG CAPSULE PO PRN (11:48)
[2021-02-23] MEDS ORDERED: hydrALAZINE 20 MG/1 ML VIAL IV PRN (11:48)
[2021-02-23] MEDS ORDERED: AZITHROMYCIN INJ 500 MG in SODIUM CHLORIDE 0.9% 250 ML IV SCH (12:00)
[2021-02-23] MEDS: ALBUTEROL 2.5 MG/3 ML NEB RESP TX SCH ×2 (14:25→19:12)
[2021-02-23] MEDS: methylPREDNISolone SOD SUC 40 MG/1 ML VIAL IV SCH (17:00)
[2021-02-23] MEDS: ENOXAPARIN 40 MG/0.4 ML SYRINGE SUBCUT SCH (17:02)
[2021-02-23] MEDS: cefTRIAXone 1,000 MG in SODIUM CHLORIDE 0.9% 100 ML IV SCH (18:11)
[2021-02-23] MEDS ORDERED: guaiFENesin/DM ER 600-30 MG TABLET PO SCH (21:00)
[2021-02-24] MEDS: ALBUTEROL 2.5 MG/3 ML NEB RESP TX SCH ×4 (00:46→19:01)
[2021-02-24] MEDS: methylPREDNISolone SOD SUC 40 MG/1 ML VIAL IV SCH ×3 (01:49→17:07)
[2021-02-24 05:16] LABS: Bilirubin,Urine Negative (Negative); Blood, Urine Negative (Negative); Glucose,Urine (UA) Negative (Negative); Ketones,Urine Negative (Negative); Nitrite,Urine Negative (Negative); Protein,Urine Negative; RBC,Urine 2 /HPF (0-4); Urine Appearance CLEAR (Clear); Urine Color Yellow (Yellow); Urine Specific Gravity 1.025 (1.001-1.035); Urine Urobilinogen < 2.0 EU/DL (0.2-1.0)
[2021-02-24 05:23] LABS: Hematocrit 36.9 VOL% (42.0-52.0); Hemoglobin 11.8 GM/DL (14.0-18.0); Immature Granulocytes % 0.5 %; Immature Granulocytes Absolute 0.03 #; Lymphocytes # 0.3 10*3/uL (1.4-4.0); Lymphocytes % 5.3 % (21.2-54.2); Mean Corpuscular Volume 100.3 FL (87-102); Mean Platelet Volume 9.1 FL (9.6-12.0); Neutrophils % 93.2 % (38.7-73.9); Platelet Count 376 T/CUMM (130-400); Red Blood Count 3.68 MC/CUMM (3.8-5.5); Red Cell Distribution Width 12.6 % (9.3-17.3); White Blood Count 5.8 T/CUMM (4-12)
[2021-02-24 05:47] LABS: Hypochromasia 1+; Lymphocytes 4 % (20-55); Microcytosis 1+; Platelet Estimate Adequate; Segmented Neutrophils 96 % (50-85); Total Cells Counted 100
[2021-02-24 06:02] LABS: Calcium 9.4 MG/DL (8.5-10.1); Osmolality,Calculated 270.1 MOS/KG (273-304); Risk Ratio 3.32; Thyroid Stimulating Hormone 0.256 uIU/ml (0.358-3.74); VLDL CHOLESTEROL 9.8 MG/DL
[2021-02-24] MEDS: PANTOPRAZOLE 40 MG TABLET PO SCH (08:04)
[2021-02-24] MEDS: FUROSEMIDE 40 MG/4 ML VIAL IV SCH (08:06)
[2021-02-24] MEDS: FLUCONAZOLE 200 MG TABLET PO SCH (10:01)
[2021-02-24] MEDS: AZITHROMYCIN INJ 500 MG in SODIUM CHLORIDE 0.9% 250 ML IV SCH (10:07)
[2021-02-24] MEDS: ONDANSETRON 4 MG/2 ML VIAL IV PRN (11:17)
[2021-02-24] MEDS: cefTRIAXone 1,000 MG in SODIUM CHLORIDE 0.9% 100 ML IV SCH (11:17)
[2021-02-24] MEDS: ENOXAPARIN 40 MG/0.4 ML SYRINGE SUBCUT SCH (11:17)
[2021-02-24] MEDS ORDERED: ALPRAZolam 0.25 MG TABLET PO PRN (14:24)
[2021-02-24] MEDS ORDERED: TEMAZEPAM 7.5 MG CAPSULE PO PRN (14:24)
[2021-02-24] MEDS ORDERED: MYLANTA/LIDO VISC 2:1 300 ML BOTTLE SWISH/SWAL PRN (14:24)
[2021-02-24] MEDS ORDERED: ALUMINUM/MAGNES/SIMETH MAX STR 30 ML UDCUP PO PRN (14:24)
[2021-02-24] MEDS ORDERED: LOPERAMIDE 2 MG CAPSULE PO PRN ×2 (14:24)
[2021-02-24] MEDS ORDERED: chlorproMAZINE INJ 25 MG in SODIUM CHLORIDE 0.9% 100 ML IV PRN (14:24)
[2021-02-24] MEDS ORDERED: PROMETHAZINE INJ 25 MG in SODIUM CHLORIDE 0.9% 50 ML IV PRN (14:24)
[2021-02-24] MEDS ORDERED: traMADol 50 MG TABLET PO PRN (14:24)
[2021-02-24] MEDS ORDERED: MYLANTA/LIDO VISC 2:1 300 ML BOTTLE SWISH/SPIT PRN (14:24)
[2021-02-24] MEDS ORDERED: diphenhydrAMINE CAP 25 MG CAPSULE PO PRN (14:24)
[2021-02-24] MEDS ORDERED: MAGNESIUM HYDROXIDE SUSP 30 ML UDCUP PO PRN (14:24)
[2021-02-24] MEDS ORDERED: guaiFENesin 200 MG/10 ML UDCUP PO PRN (14:24)
[2021-02-24] MEDS ORDERED: chlorproMAZINE INJ 50 MG in SODIUM CHLORIDE 0.9% 100 ML IV PRN (14:24)
[2021-02-25] MEDS: ALBUTEROL 2.5 MG/3 ML NEB RESP TX SCH ×4 (00:18→20:30)
[2021-02-25] MEDS: methylPREDNISolone SOD SUC 40 MG/1 ML VIAL IV SCH ×3 (00:25→16:30)
[2021-02-25 05:21] LABS: Hematocrit 35.4 VOL% (42.0-52.0); Hemoglobin 11.5 GM/DL (14.0-18.0); Immature Granulocytes % 0.8 %; Immature Granulocytes Absolute 0.09 #; Lymphocytes # 0.3 10*3/uL (1.4-4.0); Lymphocytes % 2.3 % (21.2-54.2); Mean Corpuscular HGB Conc 32.5 GM/DL (32-36); Mean Platelet Volume 9.3 FL (9.6-12.0); Monocytes % 2.6 % (1.7-12.7); Neutrophils % 94.3 % (38.7-73.9); Platelet Count 360 T/CUMM (130-400); Red Blood Count 3.54 MC/CUMM (3.8-5.5); Red Cell Distribution Width 12.4 % (9.3-17.3); White Blood Count 11.1 T/CUMM (4-12)
[2021-02-25 05:44] LABS: Hypochromasia Slight; Lymphocytes 4 % (20-55); Microcytosis Slight; Platelet Estimate Adequate; Segmented Neutrophils 90 % (50-85); Total Cells Counted 100
[2021-02-25 05:45] LABS: Calcium 9.5 MG/DL (8.5-10.1); Potassium 4.1 MMOL/L (3.5-5.1)
[2021-02-25] MEDS: ONDANSETRON 4 MG/2 ML VIAL IV PRN (08:02)
[2021-02-25] MEDS: PANTOPRAZOLE 40 MG TABLET PO SCH (08:24)
[2021-02-25] MEDS: FLUCONAZOLE 200 MG TABLET PO SCH (08:24)
[2021-02-25] MEDS: FUROSEMIDE 40 MG/4 ML VIAL IV SCH (08:25)
[2021-02-25 09:27] LABS: PT Patient Result 11.5 SECS (10.5-12.0)
[2021-02-25] MEDS: AZITHROMYCIN INJ 500 MG in SODIUM CHLORIDE 0.9% 250 ML IV SCH (12:17)
[2021-02-25] MEDS: AZITHROMYCIN 250 MG TABLET PO SCH (12:31)
[2021-02-25] MEDS: cefTRIAXone 1,000 MG in SODIUM CHLORIDE 0.9% 100 ML IV SCH (12:34)
[2021-02-25] MEDS: LACTULOSE 20 GM/30 ML UDCUP PO PRN (16:25)
[2021-02-25] MEDS: MEGESTROL 400 MG/10 ML UDCUP PO SCH (20:35)
[2021-02-26] MEDS: methylPREDNISolone SOD SUC 40 MG/1 ML VIAL IV SCH ×4 (00:17→23:56)
[2021-02-26] MEDS: ALBUTEROL 2.5 MG/3 ML NEB RESP TX SCH ×4 (00:46→20:10)
[2021-02-26 04:32] LABS: Basophils % 0.1 % (0.0-0.8); Hematocrit 37.5 VOL% (42.0-52.0); Hemoglobin 12.2 GM/DL (14.0-18.0); Immature Granulocytes % 1.1 %; Immature Granulocytes Absolute 0.11 #; Lymphocytes # 0.2 10*3/uL (1.4-4.0); Lymphocytes % 1.7 % (21.2-54.2); Mean Corpuscular HGB Conc 32.5 GM/DL (32-36); Mean Corpuscular Volume 98.9 FL (87-102); Mean Platelet Volume 9.2 FL (9.6-12.0); Monocytes % 3.1 % (1.7-12.7); Platelet Count 367 T/CUMM (130-400); Red Blood Count 3.79 MC/CUMM (3.8-5.5); Red Cell Distribution Width 12.7 % (9.3-17.3); White Blood Count 10.4 T/CUMM (4-12)
[2021-02-26 04:47] LABS: Calcium 9.8 MG/DL (8.5-10.1); Osmolality,Calculated 280.7 MOS/KG (273-304)
[2021-02-26 05:24] LABS: Lymphocytes 6 % (20-55); Microcytosis Slight; Segmented Neutrophils 94 % (50-85); Total Cells Counted 100
[2021-02-26 05:25] LABS: Hypochromasia 1+; Platelet Estimate Normal
[2021-02-26] MEDS: MEGESTROL 400 MG/10 ML UDCUP PO SCH ×2 (09:23→20:23)
[2021-02-26] MEDS: PANTOPRAZOLE 40 MG TABLET PO SCH (09:24)
[2021-02-26] MEDS: FLUCONAZOLE 200 MG TABLET PO SCH (09:24)
[2021-02-26] MEDS: AZITHROMYCIN 250 MG TABLET PO SCH (09:24)
[2021-02-26] MEDS: FUROSEMIDE 40 MG/4 ML VIAL IV SCH (09:26)
[2021-02-26] MEDS: cefTRIAXone 1,000 MG in SODIUM CHLORIDE 0.9% 100 ML IV SCH (11:15)
[2021-02-26 11:32] LABS: Free T4 (Free Thyroxine) 1.37 NG/DL (0.76-1.46)
[2021-02-27] MEDS: methylPREDNISolone SOD SUC 40 MG/1 ML VIAL IV SCH ×3 (00:21→16:56)
[2021-02-27] MEDS: ALBUTEROL 2.5 MG/3 ML NEB RESP TX SCH ×4 (01:05→19:07)
[2021-02-27 04:55] LABS: Hematocrit 36.1 VOL% (42.0-52.0); Hemoglobin 11.3 GM/DL (14.0-18.0); Immature Granulocytes % 0.6 %; Immature Granulocytes Absolute 0.07 #; Lymphocytes # 0.2 10*3/uL (1.4-4.0); Lymphocytes % 1.9 % (21.2-54.2); Mean Corpuscular HGB Conc 31.3 GM/DL (32-36); Mean Corpuscular Volume 101.7 FL (87-102); Monocytes % 3.4 % (1.7-12.7); Neutrophils % 94.1 % (38.7-73.9); Platelet Count 348 T/CUMM (130-400); Red Blood Count 3.55 MC/CUMM (3.8-5.5); Red Cell Distribution Width 12.6 % (9.3-17.3); White Blood Count 11.7 T/CUMM (4-12)
[2021-02-27 05:21] LABS: Calcium 9.7 MG/DL (8.5-10.1); Osmolality,Calculated 281.7 MOS/KG (273-304); Potassium 4.3 MMOL/L (3.5-5.1)
[2021-02-27 05:39] LABS: Lymphocytes 3 % (20-55); Macrocytosis Slight; Platelet Estimate Normal; Segmented Neutrophils 94 % (50-85); Total Cells Counted 100
[2021-02-27] MEDS: LEVOTHYROXINE 50 MCG TABLET PO SCH (05:39)
[2021-02-27] MEDS: FLUCONAZOLE 200 MG TABLET PO SCH (09:11)
[2021-02-27] MEDS: AZITHROMYCIN 250 MG TABLET PO SCH (09:11)
[2021-02-27] MEDS: MEGESTROL 400 MG/10 ML UDCUP PO SCH ×2 (09:11→20:48)
[2021-02-27] MEDS: amLODIPine 2.5 MG TABLET PO SCH (09:12)
[2021-02-27] MEDS: FUROSEMIDE 40 MG/4 ML VIAL IV SCH (09:12)
[2021-02-27] MEDS: PANTOPRAZOLE 40 MG TABLET PO SCH (09:12)
[2021-02-27] MEDS: cefTRIAXone 1,000 MG in SODIUM CHLORIDE 0.9% 100 ML IV SCH (12:07)
[2021-02-27] MEDS: ATORVASTATIN 10 MG TABLET PO SCH (20:47)
[2021-02-27] MEDS: METOPROLOL TARTRATE 25 MG TABLET PO SCH (20:48)
[2021-02-28] MEDS: ALBUTEROL 2.5 MG/3 ML NEB RESP TX SCH ×4 (00:40→19:22)
[2021-02-28] MEDS: methylPREDNISolone SOD SUC 40 MG/1 ML VIAL IV SCH ×3 (02:34→16:03)
[2021-02-28 04:57] LABS: Hematocrit 36.4 VOL% (42.0-52.0); Hemoglobin 11.2 GM/DL (14.0-18.0); Immature Granulocytes % 0.7 %; Immature Granulocytes Absolute 0.09 #; Lymphocytes # 0.3 10*3/uL (1.4-4.0); Lymphocytes % 2.1 % (21.2-54.2); Mean Corpuscular HGB Conc 30.8 GM/DL (32-36); Mean Corpuscular Volume 103.7 FL (87-102); Mean Platelet Volume 9.4 FL (9.6-12.0); Monocytes % 4.2 % (1.7-12.7); Platelet Count 350 T/CUMM (130-400); Red Blood Count 3.51 MC/CUMM (3.8-5.5); Red Cell Distribution Width 12.9 % (9.3-17.3); White Blood Count 13.5 T/CUMM (4-12)
[2021-02-28 05:11] LABS: Calcium 9.6 MG/DL (8.5-10.1); Osmolality,Calculated 280.7 MOS/KG (273-304); Potassium 3.8 MMOL/L (3.5-5.1)
[2021-02-28 05:24] LABS: Lymphocytes 2 % (20-55); Segmented Neutrophils 97 % (50-85); Total Cells Counted 100
[2021-02-28 05:25] LABS: Hypochromasia 1+; Microcytosis 1+; Platelet Estimate Normal
[2021-02-28] MEDS: LEVOTHYROXINE 50 MCG TABLET PO SCH (06:30)
[2021-02-28] MEDS: ONDANSETRON 4 MG/2 ML VIAL IV PRN (06:30)
[2021-02-28] MEDS: AZITHROMYCIN 250 MG TABLET PO SCH (10:00)
[2021-02-28] MEDS: MEGESTROL 400 MG/10 ML UDCUP PO SCH ×2 (10:00→21:01)
[2021-02-28] MEDS: METOPROLOL TARTRATE 25 MG TABLET PO SCH ×2 (10:00→21:01)
[2021-02-28] MEDS: amLODIPine 2.5 MG TABLET PO SCH (10:00)
[2021-02-28] MEDS: FLUCONAZOLE 200 MG TABLET PO SCH (10:00)
[2021-02-28] MEDS: PANTOPRAZOLE 40 MG TABLET PO SCH (10:00)
[2021-02-28] MEDS: FUROSEMIDE 40 MG/4 ML VIAL IV SCH (10:01)
[2021-02-28] MEDS: cefTRIAXone 1,000 MG in SODIUM CHLORIDE 0.9% 100 ML IV SCH (11:58)
[2021-02-28] MEDS: ENOXAPARIN 40 MG/0.4 ML SYRINGE SUBCUT SCH (11:58)
[2021-02-28] MEDS: ATORVASTATIN 10 MG TABLET PO SCH (21:01)
[2021-03-01] MEDS: methylPREDNISolone SOD SUC 40 MG/1 ML VIAL IV SCH ×3 (00:07→17:44)
[2021-03-01] MEDS: ALBUTEROL 2.5 MG/3 ML NEB RESP TX SCH ×4 (02:40→19:35)
[2021-03-01 05:07] LABS: Basophils % 0.1 % (0.0-0.8); Hematocrit 37.3 VOL% (42.0-52.0); Hemoglobin 11.9 GM/DL (14.0-18.0); Immature Granulocytes % 0.6 %; Immature Granulocytes Absolute 0.08 #; Lymphocytes # 0.2 10*3/uL (1.4-4.0); Lymphocytes % 1.8 % (21.2-54.2); Mean Corpuscular HGB Conc 31.9 GM/DL (32-36); Mean Corpuscular Volume 101.1 FL (87-102); Mean Platelet Volume 9.2 FL (9.6-12.0); Monocytes % 2.2 % (1.7-12.7); Neutrophils % 95.3 % (38.7-73.9); Platelet Count 346 T/CUMM (130-400); Red Blood Count 3.69 MC/CUMM (3.8-5.5); Red Cell Distribution Width 12.8 % (9.3-17.3); White Blood Count 12.7 T/CUMM (4-12)
[2021-03-01 05:24] LABS: Calcium 9.6 MG/DL (8.5-10.1); Osmolality,Calculated 280.8 MOS/KG (273-304); Potassium 4.1 MMOL/L (3.5-5.1)
[2021-03-01 05:33] LABS: Platelet Estimate Normal; Segmented Neutrophils 99 % (50-85); Total Cells Counted 100
[2021-03-01] MEDS: LEVOTHYROXINE 50 MCG TABLET PO SCH (05:58)
[2021-03-01] MEDS: ONDANSETRON 4 MG/2 ML VIAL IV PRN (09:16)
[2021-03-01] MEDS: FUROSEMIDE 40 MG/4 ML VIAL IV SCH (09:22)
[2021-03-01] MEDS: PANTOPRAZOLE 40 MG TABLET PO SCH (10:32)
[2021-03-01] MEDS: METOPROLOL TARTRATE 25 MG TABLET PO SCH ×2 (10:32→21:07)
[2021-03-01] MEDS: amLODIPine 5 MG TABLET PO SCH (10:33)
[2021-03-01] MEDS: AZITHROMYCIN 250 MG TABLET PO SCH (10:34)
[2021-03-01] MEDS: MEGESTROL 400 MG/10 ML UDCUP PO SCH ×2 (10:35→21:07)
[2021-03-01] MEDS: LACTULOSE 20 GM/30 ML UDCUP PO PRN (10:37)
[2021-03-01] MEDS: ENOXAPARIN 40 MG/0.4 ML SYRINGE SUBCUT SCH (12:57)
[2021-03-01] MEDS: cefTRIAXone 1,000 MG in SODIUM CHLORIDE 0.9% 100 ML IV SCH (12:58)
[2021-03-01] MEDS: ATORVASTATIN 10 MG TABLET PO SCH (21:07)
[2021-03-02] MEDS: ALBUTEROL 2.5 MG/3 ML NEB RESP TX SCH ×2 (00:12→07:00)
[2021-03-02] MEDS: methylPREDNISolone SOD SUC 40 MG/1 ML VIAL IV SCH ×2 (02:07→08:56)
[2021-03-02 04:42] LABS: Basophils % 0.1 % (0.0-0.8); Hemoglobin 12.1 GM/DL (14.0-18.0); Immature Granulocytes % 0.8 %; Lymphocytes # 0.2 10*3/uL (1.4-4.0); Lymphocytes % 1.8 % (21.2-54.2); Mean Corpuscular HGB Conc 32.7 GM/DL (32-36); Mean Corpuscular Volume 98.9 FL (87-102); Mean Platelet Volume 9.3 FL (9.6-12.0); Monocytes % 2.9 % (1.7-12.7); Neutrophils % 94.4 % (38.7-73.9); Platelet Count 330 T/CUMM (130-400); Red Blood Count 3.74 MC/CUMM (3.8-5.5); Red Cell Distribution Width 12.8 % (9.3-17.3)
[2021-03-02 05:00] LABS: Calcium 9.6 MG/DL (8.5-10.1); Potassium 3.3 MMOL/L (3.5-5.1)
[2021-03-02 05:05] LABS: Lymphocytes 2 % (20-55); Platelet Estimate Adequate; Segmented Neutrophils 97 % (50-85); Total Cells Counted 100
[2021-03-02 05:06] LABS: Hypochromasia 1+; Microcytosis 1+
[2021-03-02] MEDS: LEVOTHYROXINE 50 MCG TABLET PO SCH (05:30)
[2021-03-02] MEDS: METOPROLOL TARTRATE 25 MG TABLET PO SCH (08:56)
[2021-03-02] MEDS: AZITHROMYCIN 250 MG TABLET PO SCH (08:56)
[2021-03-02] MEDS: PANTOPRAZOLE 40 MG TABLET PO SCH (08:56)
[2021-03-02] MEDS: MEGESTROL 400 MG/10 ML UDCUP PO SCH (08:56)
[2021-03-02] MEDS: FUROSEMIDE 40 MG/4 ML VIAL IV SCH (08:56)
[2021-03-02] MEDS: amLODIPine 5 MG TABLET PO SCH (08:56)
[2021-03-02] MEDS: LACTULOSE 20 GM/30 ML UDCUP PO PRN (09:03)
[2021-03-02] MEDS: ONDANSETRON 4 MG/2 ML VIAL IV PRN (10:08)
[2021-03-02 11:14] VITALS: BP 140/81
[2021-03-02] MEDS: cefTRIAXone 1,000 MG in SODIUM CHLORIDE 0.9% 100 ML IV SCH (12:45)
[2021-03-02] MEDS: ENOXAPARIN 40 MG/0.4 ML SYRINGE SUBCUT SCH (13:24)
[2021-03-02] MEDS ORDERED: POTASSIUM CHLORIDE 20 MEQ TABLET PO ONE (13:31)
== END 2021-03-02 16:29 | disposition home health service (06) | DRG 193 ==
LOC: EDUNIT# → EDBD → N.ED 08:36 → N.EDINP 11:39 → SUATTDRO 11:39 → N.4E 13:30
PROVIDERS: ADMIT Hospitalist; ATTEND Internal Medicine

== ENCOUNTER 2021-04-06 13:54 | Inpatient (IN) ==
[2021-04-06 14:36] LABS: Basophils % 0.1 % (0.0-0.8); Hematocrit 35.4 VOL% (42.0-52.0); Hemoglobin 11.4 GM/DL (14.0-18.0); Immature Granulocytes % 0.8 %; Lymphocytes # 0.5 10*3/uL (1.4-4.0); Lymphocytes % 3.5 % (21.2-54.2); Mean Corpuscular HGB Conc 32.2 GM/DL (32-36); Mean Corpuscular Volume 99.4 FL (87-102); Mean Platelet Volume 8.4 FL (9.6-12.0); Monocytes % 4.3 % (1.7-12.7); Neutrophils % 91.3 % (38.7-73.9); Platelet Count 341 T/CUMM (130-400); Red Blood Count 3.56 MC/CUMM (3.8-5.5); Red Cell Distribution Width 13.2 % (9.3-17.3); White Blood Count 13.1 T/CUMM (4-12)
[2021-04-06 14:56] LABS: Albumin 2.9 G/DL (3.4-5.0); Bilirubin,Total 0.5 MG/DL (0.20-1.00); Calcium 8.8 MG/DL (8.5-10.1); Osmolality,Calculated 268.2 MOS/KG (273-304); Potassium 3.7 MMOL/L (3.5-5.1); Total Protein 5.9 G/DL (6.4-8.2)
[2021-04-06] MEDS ORDERED: AZITHROMYCIN INJ 500 MG in SODIUM CHLORIDE 0.9% 250 ML IV STA (15:28)
[2021-04-06] MEDS ORDERED: cefTRIAXone 1,000 MG in SODIUM CHLORIDE 0.9% 100 ML IV STA (15:28)
[2021-04-06] MEDS ORDERED: GLUCAGON 1 MG VIAL IM PRN (15:31)
[2021-04-06] MEDS ORDERED: DEXTROSE 50% 25 GM/50 ML VIAL IV PRN (15:31)
[2021-04-06 15:49] LABS: Bilirubin,Urine Negative (Negative); Blood, Urine Negative (Negative); Glucose,Urine (UA) Negative (Negative); Hyaline Casts,Urine 11 /LPF (0-3); Ketones,Urine Negative (Negative); Mucus,Urine Occasional /LPF (Occasional); Nitrite,Urine Negative (Negative); Protein,Urine Negative; RBC,Urine 2 /HPF (0-4); Squamous Epithelial Cell,Urine Occasional /HPF (0-10); Urine Appearance CLEAR (Clear); Urine Color Yellow (Yellow); Urine Specific Gravity 1.009 (1.001-1.035); Urine Urobilinogen < 2.0 EU/DL (0.2-1.0)
[2021-04-06] MEDS ORDERED: FUROSEMIDE 40 MG/4 ML VIAL IV ONE (16:26)
[2021-04-06] MEDS ORDERED: FUROSEMIDE 40 MG/4 ML VIAL IV SCH (16:30)
[2021-04-06] MEDS: methylPREDNISolone SOD SUC 40 MG/1 ML VIAL IV SCH (16:50)
[2021-04-06] MEDS: ALBUTEROL/IPRATROPIUM 3 ML NEB RESP TX SCH (19:22)
[2021-04-06] MEDS: ENOXAPARIN 40 MG/0.4 ML SYRINGE SUBCUT SCH (21:25)
[2021-04-07] MEDS: methylPREDNISolone SOD SUC 40 MG/1 ML VIAL IV SCH ×3 (00:23→16:36)
[2021-04-07] MEDS: LEVOTHYROXINE 50 MCG TABLET PO SCH (05:33)
[2021-04-07 05:47] LABS: Basophils % 0.1 % (0.0-0.8); Hematocrit 35.2 VOL% (42.0-52.0); Hemoglobin 11.5 GM/DL (14.0-18.0); Immature Granulocytes % 0.4 %; Immature Granulocytes Absolute 0.03 #; Lymphocytes # 0.3 10*3/uL (1.4-4.0); Lymphocytes % 4.4 % (21.2-54.2); Mean Corpuscular HGB Conc 32.7 GM/DL (32-36); Mean Corpuscular Volume 99.7 FL (87-102); Mean Platelet Volume 8.9 FL (9.6-12.0); Monocytes % 2.1 % (1.7-12.7); Platelet Count 336 T/CUMM (130-400); Red Blood Count 3.53 MC/CUMM (3.8-5.5); Red Cell Distribution Width 13.2 % (9.3-17.3); White Blood Count 7.3 T/CUMM (4-12)
[2021-04-07 06:03] LABS: Calcium 9.6 MG/DL (8.5-10.1); Osmolality,Calculated 270.2 MOS/KG (273-304); Potassium 3.2 MMOL/L (3.5-5.1)
[2021-04-07 06:17] LABS: Lymphocytes 1 % (20-55); Segmented Neutrophils 97 % (50-85); Total Cells Counted 100
[2021-04-07 06:18] LABS: Hypochromasia 1+; Microcytosis 1+; Platelet Estimate Normal
[2021-04-07] MEDS: ALBUTEROL/IPRATROPIUM 3 ML NEB RESP TX SCH ×4 (07:40→20:56)
[2021-04-07] MEDS: PIPERACILLIN/TAZOBACTAM 3,375 MG in SODIUM CHLORIDE 0.9% 100 ML IV SCH ×2 (08:47→16:36)
[2021-04-07] MEDS: METOPROLOL SUCCINATE XL 25 MG TABLET PO SCH (08:48)
[2021-04-07] MEDS: AMIODARONE 200 MG TABLET PO SCH (08:48)
[2021-04-07] MEDS: PANTOPRAZOLE 40 MG TABLET PO SCH (08:48)
[2021-04-07] MEDS ORDERED: FUROSEMIDE 40 MG TABLET PO SCH (09:00)
[2021-04-07] MEDS ORDERED: ONDANSETRON 4 MG TABLET PO PRN (09:28)
[2021-04-07] MEDS: MENTHOL/ZINC OXIDE OINT 71 GM JAR TOP SCH (20:26)
[2021-04-07] MEDS: ENOXAPARIN 40 MG/0.4 ML SYRINGE SUBCUT SCH (20:26)
[2021-04-08] MEDS: PIPERACILLIN/TAZOBACTAM 3,375 MG in SODIUM CHLORIDE 0.9% 100 ML IV SCH ×3 (00:42→16:54)
[2021-04-08] MEDS: methylPREDNISolone SOD SUC 40 MG/1 ML VIAL IV SCH ×4 (00:43→16:58)
[2021-04-08] MEDS: ALBUTEROL/IPRATROPIUM 3 ML NEB RESP TX SCH ×4 (01:01→20:20)
[2021-04-08] MEDS: LEVOTHYROXINE 50 MCG TABLET PO SCH (05:51)
[2021-04-08] MEDS: MENTHOL/ZINC OXIDE OINT 71 GM JAR TOP SCH ×2 (11:37→21:15)
[2021-04-08 13:32] LABS: Free T4 (Free Thyroxine) 1.31 NG/DL (0.76-1.46)
[2021-04-08] MEDS: AMIODARONE 200 MG TABLET PO SCH (13:34)
[2021-04-08] MEDS: PANTOPRAZOLE 40 MG TABLET PO SCH (13:34)
[2021-04-08] MEDS: METOPROLOL SUCCINATE XL 25 MG TABLET PO SCH (13:35)
[2021-04-08] MEDS: NYSTATIN 500,000 UNIT/5 ML UDCUP SWISH/SWAL SCH ×3 (14:25→21:14)
[2021-04-08] MEDS: ENOXAPARIN 40 MG/0.4 ML SYRINGE SUBCUT SCH (21:14)
[2021-04-09] MEDS: ALBUTEROL/IPRATROPIUM 3 ML NEB RESP TX SCH ×4 (00:29→20:00)
[2021-04-09] MEDS: PIPERACILLIN/TAZOBACTAM 3,375 MG in SODIUM CHLORIDE 0.9% 100 ML IV SCH ×3 (03:45→17:30)
[2021-04-09] MEDS: methylPREDNISolone SOD SUC 40 MG/1 ML VIAL IV SCH ×3 (03:46→17:29)
[2021-04-09 05:18] LABS: Basophils % 0.1 % (0.0-0.8); Hematocrit 32.8 VOL% (42.0-52.0); Hemoglobin 10.6 GM/DL (14.0-18.0); Immature Granulocytes % 0.7 %; Immature Granulocytes Absolute 0.08 #; Lymphocytes # 0.3 10*3/uL (1.4-4.0); Lymphocytes % 2.8 % (21.2-54.2); Mean Corpuscular HGB Conc 32.3 GM/DL (32-36); Mean Corpuscular Volume 101.5 FL (87-102); Mean Platelet Volume 8.7 FL (9.6-12.0); Monocytes % 3.3 % (1.7-12.7); Neutrophils % 93.1 % (38.7-73.9); Platelet Count 290 T/CUMM (130-400); Red Blood Count 3.23 MC/CUMM (3.8-5.5); Red Cell Distribution Width 13.3 % (9.3-17.3); White Blood Count 10.9 T/CUMM (4-12)
[2021-04-09 05:44] LABS: Calcium 9.2 MG/DL (8.5-10.1); Osmolality,Calculated 278.5 MOS/KG (273-304); Potassium 3.3 MMOL/L (3.5-5.1)
[2021-04-09 05:51] LABS: Hypochromasia 1+; Lymphocytes 5 % (20-55); Microcytosis 1+; Platelet Estimate Adequate; Segmented Neutrophils 94 % (50-85); Total Cells Counted 100
[2021-04-09] MEDS: LEVOTHYROXINE 50 MCG TABLET PO SCH (06:29)
[2021-04-09] MEDS: PANTOPRAZOLE 40 MG TABLET PO SCH (10:12)
[2021-04-09] MEDS: AMIODARONE 200 MG TABLET PO SCH ×2 (10:12→20:07)
[2021-04-09] MEDS: METOPROLOL SUCCINATE XL 25 MG TABLET PO SCH (10:13)
[2021-04-09] MEDS: NYSTATIN 500,000 UNIT/5 ML UDCUP SWISH/SWAL SCH ×5 (10:35→20:07)
[2021-04-09] MEDS: MENTHOL/ZINC OXIDE OINT 71 GM JAR TOP SCH ×2 (10:38→20:07)
[2021-04-09] MEDS: ENOXAPARIN 40 MG/0.4 ML SYRINGE SUBCUT SCH (20:07)
[2021-04-10] MEDS: ALBUTEROL/IPRATROPIUM 3 ML NEB RESP TX SCH ×4 (00:30→20:19)
[2021-04-10] MEDS: PIPERACILLIN/TAZOBACTAM 3,375 MG in SODIUM CHLORIDE 0.9% 100 ML IV SCH ×3 (01:31→16:07)
[2021-04-10] MEDS: methylPREDNISolone SOD SUC 40 MG/1 ML VIAL IV SCH ×4 (01:31→22:07)
[2021-04-10] MEDS: LEVOTHYROXINE 50 MCG TABLET PO SCH (06:26)
[2021-04-10] MEDS: NYSTATIN 500,000 UNIT/5 ML UDCUP SWISH/SWAL SCH ×4 (09:29→22:06)
[2021-04-10] MEDS: MENTHOL/ZINC OXIDE OINT 71 GM JAR TOP SCH ×2 (09:30→22:07)
[2021-04-10] MEDS: METOPROLOL TARTRATE 25 MG TABLET PO SCH ×2 (09:30→22:06)
[2021-04-10] MEDS: AMIODARONE 200 MG TABLET PO SCH ×2 (09:31→22:07)
[2021-04-10] MEDS: PANTOPRAZOLE 40 MG TABLET PO SCH (09:31)
[2021-04-10] MEDS: FLUCONAZOLE INJ 200 MG/100 ML PREMIX IV SCH (14:43)
[2021-04-10] MEDS ORDERED: ACETAMINOPHEN 325 MG TABLET PO PRN (15:38)
[2021-04-10] MEDS: ENOXAPARIN 40 MG/0.4 ML SYRINGE SUBCUT SCH (22:06)
[2021-04-11] MEDS: ALBUTEROL/IPRATROPIUM 3 ML NEB RESP TX SCH ×4 (00:28→19:22)
[2021-04-11] MEDS: PIPERACILLIN/TAZOBACTAM 3,375 MG in SODIUM CHLORIDE 0.9% 100 ML IV SCH ×3 (02:01→17:15)
[2021-04-11] MEDS: LEVOTHYROXINE 50 MCG TABLET PO SCH (05:56)
[2021-04-11 06:40] LABS: Calcium 9.2 MG/DL (8.5-10.1); Osmolality,Calculated 286.1 MOS/KG (273-304)
[2021-04-11] MEDS: methylPREDNISolone SOD SUC 40 MG/1 ML VIAL IV SCH ×2 (09:10→21:13)
[2021-04-11] MEDS: POTASSIUM CHLORIDE RIDER 10 MEQ/100 ML PREMIX IV PRN ×5 (09:10→15:40)
[2021-04-11] MEDS: AMIODARONE 200 MG TABLET PO SCH ×2 (09:45→21:13)
[2021-04-11] MEDS: NYSTATIN 500,000 UNIT/5 ML UDCUP SWISH/SWAL SCH ×4 (09:46→21:13)
[2021-04-11] MEDS: METOPROLOL TARTRATE 25 MG TABLET PO SCH ×2 (09:46→21:13)
[2021-04-11] MEDS: PANTOPRAZOLE 40 MG TABLET PO SCH (09:46)
[2021-04-11] MEDS: MENTHOL/ZINC OXIDE OINT 71 GM JAR TOP SCH ×2 (09:47→21:14)
[2021-04-11] MEDS ORDERED: POTASSIUM PHOS/SOD PHOS POWDER 250 MG PACK PO ONE (11:00)
[2021-04-11] MEDS: FLUCONAZOLE INJ 200 MG/100 ML PREMIX IV SCH (11:15)
[2021-04-11] MEDS: POTASSIUM CHLORIDE RIDER 10 MEQ/100 ML PREMIX IV SCH (16:33)
[2021-04-11] MEDS: ENOXAPARIN 40 MG/0.4 ML SYRINGE SUBCUT SCH (21:13)
[2021-04-12] MEDS: ALBUTEROL/IPRATROPIUM 3 ML NEB RESP TX SCH ×4 (01:18→20:05)
[2021-04-12] MEDS: PIPERACILLIN/TAZOBACTAM 3,375 MG in SODIUM CHLORIDE 0.9% 100 ML IV SCH ×3 (03:05→16:45)
[2021-04-12 05:42] LABS: Basophils % 0.1 % (0.0-0.8); Hematocrit 40.3 VOL% (42.0-52.0); Hemoglobin 12.1 GM/DL (14.0-18.0); Immature Granulocytes % 0.9 %; Immature Granulocytes Absolute 0.16 #; Lymphocytes # 0.4 10*3/uL (1.4-4.0); Mean Corpuscular Volume 107.2 FL (87-102); Monocytes % 2.4 % (1.7-12.7); Neutrophils % 94.6 % (38.7-73.9); Platelet Count 254 T/CUMM (130-400); Red Blood Count 3.76 MC/CUMM (3.8-5.5); Red Cell Distribution Width 13.2 % (9.3-17.3); White Blood Count 17.4 T/CUMM (4-12)
[2021-04-12 06:05] LABS: Calcium 9.3 MG/DL (8.5-10.1); Osmolality,Calculated 282.4 MOS/KG (273-304)
[2021-04-12 06:24] LABS: Anisocytosis 1+; Band Neutrophils 1 % (0-10); Lymphocytes 2 % (20-55); Nucleated Red Blood Cells 1 (0-5); Platelet Estimate Normal; Segmented Neutrophils 93 % (50-85); Total Cells Counted 100
[2021-04-12] MEDS: AMIODARONE 200 MG TABLET PO SCH ×3 (08:42→21:39)
[2021-04-12] MEDS: MENTHOL/ZINC OXIDE OINT 71 GM JAR TOP SCH ×3 (08:42→21:39)
[2021-04-12] MEDS: METOPROLOL TARTRATE 25 MG TABLET PO SCH ×3 (08:42→21:39)
[2021-04-12] MEDS: PANTOPRAZOLE 40 MG TABLET PO SCH (08:42)
[2021-04-12] MEDS: NYSTATIN 500,000 UNIT/5 ML UDCUP SWISH/SWAL SCH ×2 (08:42→13:40)
[2021-04-12] MEDS: FLUCONAZOLE INJ 200 MG/100 ML PREMIX IV SCH (10:10)
[2021-04-12] MEDS: methylPREDNISolone SOD SUC 40 MG/1 ML VIAL IV SCH ×3 (10:10→21:39)
[2021-04-12] MEDS: MORPHINE 2 MG/1 ML SYRINGE IV PRN ×2 (13:42→17:14)
[2021-04-13] MEDS: ALBUTEROL/IPRATROPIUM 3 ML NEB RESP TX SCH ×4 (00:06→19:43)
[2021-04-13] MEDS: MORPHINE 2 MG/1 ML SYRINGE IV PRN ×2 (00:10→21:49)
[2021-04-13 06:17] LABS: Basophils % 0.1 % (0.0-0.8); Hematocrit 36.5 VOL% (42.0-52.0); Hemoglobin 11.4 GM/DL (14.0-18.0); Immature Granulocytes Absolute 0.16 #; Lymphocytes # 0.2 10*3/uL (1.4-4.0); Mean Corpuscular HGB Conc 31.2 GM/DL (32-36); Mean Corpuscular Volume 104.3 FL (87-102); Mean Platelet Volume 9.4 FL (9.6-12.0); Monocytes % 2.4 % (1.7-12.7); Neutrophils % 95.5 % (38.7-73.9); Platelet Count 245 T/CUMM (130-400); Red Cell Distribution Width 13.4 % (9.3-17.3); White Blood Count 16.3 T/CUMM (4-12)
[2021-04-13 06:46] LABS: Anisocytosis 1+; Lymphocytes 2 % (20-55); Macrocytosis 1+; Platelet Estimate Normal; Segmented Neutrophils 97 % (50-85); Spherocytes Few; Total Cells Counted 100
[2021-04-13 06:47] LABS: Calcium 9.3 MG/DL (8.5-10.1); Osmolality,Calculated 282.3 MOS/KG (273-304)
[2021-04-13] MEDS ORDERED: LACTATED RINGERS 1,000 ML IV SCH (08:00)
[2021-04-13] MEDS ORDERED: ETOMIDATE 20 MG/10 ML VIAL IV ONE (14:09)
[2021-04-13] MEDS ORDERED: LIDOCAINE 2% 5 ML VIAL ONE (14:09)
[2021-04-13] MEDS: PIPERACILLIN/TAZOBACTAM 3,375 MG in SODIUM CHLORIDE 0.9% 100 ML IV SCH ×3 (14:27→17:56)
[2021-04-13] MEDS: PANTOPRAZOLE 40 MG TABLET PO SCH (14:28)
[2021-04-13] MEDS: AMIODARONE 200 MG TABLET PO SCH ×2 (14:28→22:51)
[2021-04-13] MEDS: methylPREDNISolone SOD SUC 40 MG/1 ML VIAL IV SCH ×2 (14:29→21:48)
[2021-04-13] MEDS: METOPROLOL TARTRATE 25 MG TABLET PO SCH (14:29)
[2021-04-13] MEDS: FLUCONAZOLE INJ 200 MG/100 ML PREMIX IV SCH (14:38)
[2021-04-13] MEDS: MENTHOL/ZINC OXIDE OINT 71 GM JAR TOP SCH ×2 (15:53→22:51)
[2021-04-13] MEDS: METOPROLOL TARTRATE 50 MG TABLET PO SCH (22:51)
[2021-04-14] MEDS: ALBUTEROL/IPRATROPIUM 3 ML NEB RESP TX SCH ×4 (00:37→19:40)
[2021-04-14] MEDS: PIPERACILLIN/TAZOBACTAM 3,375 MG in SODIUM CHLORIDE 0.9% 100 ML IV SCH ×2 (01:12→09:40)
[2021-04-14 06:23] LABS: Basophils % 0.1 % (0.0-0.8); Hematocrit 39.2 VOL% (42.0-52.0); Hemoglobin 11.9 GM/DL (14.0-18.0); Immature Granulocytes % 0.7 %; Immature Granulocytes Absolute 0.08 #; Lymphocytes # 0.2 10*3/uL (1.4-4.0); Lymphocytes % 1.3 % (21.2-54.2); Mean Corpuscular HGB Conc 30.4 GM/DL (32-36); Mean Corpuscular Volume 105.1 FL (87-102); Mean Platelet Volume 9.2 FL (9.6-12.0); Monocytes % 1.6 % (1.7-12.7); Neutrophils % 96.3 % (38.7-73.9); Platelet Count 234 T/CUMM (130-400); Red Blood Count 3.73 MC/CUMM (3.8-5.5); Red Cell Distribution Width 13.6 % (9.3-17.3); White Blood Count 12.3 T/CUMM (4-12)
[2021-04-14 06:55] LABS: Calcium 9.5 MG/DL (8.5-10.1); Osmolality,Calculated 281.4 MOS/KG (273-304); Potassium 4.6 MMOL/L (3.5-5.1)
[2021-04-14 07:26] LABS: Hypochromasia 1+; Lymphocytes 1 % (20-55); Macrocytosis 1+; Platelet Estimate Normal; Segmented Neutrophils 97 % (50-85); Total Cells Counted 100
[2021-04-14] MEDS ORDERED: ASPIRIN CHEW 81 MG TABLET PO SCH (09:00)
[2021-04-14] MEDS: MENTHOL/ZINC OXIDE OINT 71 GM JAR TOP SCH ×2 (09:38→21:19)
[2021-04-14] MEDS: MORPHINE 2 MG/1 ML SYRINGE IV PRN ×2 (09:38→21:20)
[2021-04-14] MEDS: METOPROLOL TARTRATE 50 MG TABLET PO SCH (10:50)
[2021-04-14] MEDS: AMIODARONE 200 MG TABLET PO SCH (10:50)
[2021-04-14] MEDS: PANTOPRAZOLE 40 MG TABLET PO SCH (11:34)
[2021-04-14] MEDS: METOPROLOL TARTRATE 5 MG/5 ML VIAL IV SCH ×2 (15:38→21:20)
[2021-04-14] MEDS: methylPREDNISolone SOD SUC 40 MG/1 ML VIAL IV SCH (21:27)
[2021-04-15] MEDS: ALBUTEROL/IPRATROPIUM 3 ML NEB RESP TX SCH ×4 (01:18→19:38)
[2021-04-15] MEDS: METOPROLOL TARTRATE 5 MG/5 ML VIAL IV SCH ×4 (03:39→20:48)
[2021-04-15 05:46] LABS: Basophils % 0.1 % (0.0-0.8); Hematocrit 38.4 VOL% (42.0-52.0); Hemoglobin 11.8 GM/DL (14.0-18.0); Immature Granulocytes % 0.8 %; Immature Granulocytes Absolute 0.09 #; Lymphocytes # 0.3 10*3/uL (1.4-4.0); Lymphocytes % 2.8 % (21.2-54.2); Mean Corpuscular HGB Conc 30.7 GM/DL (32-36); Mean Corpuscular Volume 105.2 FL (87-102); Mean Platelet Volume 9.3 FL (9.6-12.0); Monocytes % 1.9 % (1.7-12.7); Neutrophils % 94.4 % (38.7-73.9); Platelet Count 227 T/CUMM (130-400); Red Blood Count 3.65 MC/CUMM (3.8-5.5); Red Cell Distribution Width 13.6 % (9.3-17.3)
[2021-04-15 06:17] LABS: Calcium 9.7 MG/DL (8.5-10.1); Osmolality,Calculated 289.8 MOS/KG (273-304); Potassium 5.1 MMOL/L (3.5-5.1)
[2021-04-15 08:03] LABS: Hypochromasia 1+; Lymphocytes 3 % (20-55); Macrocytosis 1+; Platelet Estimate Normal; Segmented Neutrophils 95 % (50-85); Total Cells Counted 100
[2021-04-15] MEDS: PANTOPRAZOLE 40 MG TABLET PO SCH (08:15)
[2021-04-15] MEDS: MENTHOL/ZINC OXIDE OINT 71 GM JAR TOP SCH ×2 (08:49→20:48)
[2021-04-15] MEDS ORDERED: TUBERCULIN SKIN TEST 0.1 ML SYRINGE INTRADERM ONE (09:46)
[2021-04-15] MEDS: MORPHINE 2 MG/1 ML SYRINGE IV PRN (16:06)
[2021-04-15] MEDS: methylPREDNISolone SOD SUC 40 MG/1 ML VIAL IV SCH (20:48)
[2021-04-16] MEDS: ALBUTEROL/IPRATROPIUM 3 ML NEB RESP TX SCH ×4 (00:14→20:50)
[2021-04-16] MEDS: MORPHINE 2 MG/1 ML SYRINGE IV PRN ×2 (00:59→13:21)
[2021-04-16] MEDS: METOPROLOL TARTRATE 5 MG/5 ML VIAL IV SCH ×2 (04:28→08:11)
[2021-04-16 06:12] LABS: Basophils % 0.1 % (0.0-0.8); Hematocrit 36.6 VOL% (42.0-52.0); Hemoglobin 11.6 GM/DL (14.0-18.0); Immature Granulocytes % 0.9 %; Lymphocytes # 0.2 10*3/uL (1.4-4.0); Lymphocytes % 1.7 % (21.2-54.2); Mean Corpuscular HGB Conc 31.7 GM/DL (32-36); Mean Corpuscular Volume 104.3 FL (87-102); Mean Platelet Volume 9.5 FL (9.6-12.0); Monocytes % 2.1 % (1.7-12.7); Neutrophils % 95.2 % (38.7-73.9); Platelet Count 211 T/CUMM (130-400); Red Blood Count 3.51 MC/CUMM (3.8-5.5); Red Cell Distribution Width 13.7 % (9.3-17.3); White Blood Count 11.5 T/CUMM (4-12)
[2021-04-16 06:37] LABS: Calcium 9.5 MG/DL (8.5-10.1); Potassium 4.6 MMOL/L (3.5-5.1)
[2021-04-16 06:59] LABS: Anisocytosis 2+; Band Neutrophils 4 % (0-10); Hypersegmented Neutrophil SLIGHT; Lymphocytes 1 % (20-55); Platelet Estimate Normal; Segmented Neutrophils 93 % (50-85); Total Cells Counted 100
[2021-04-16 07:00] LABS: Macrocytosis 1+
[2021-04-16] MEDS: PANTOPRAZOLE 40 MG TABLET PO SCH (08:11)
[2021-04-16] MEDS: MENTHOL/ZINC OXIDE OINT 71 GM JAR TOP SCH ×2 (08:11→21:03)
[2021-04-16] MEDS: METOPROLOL SUCCINATE XL 25 MG TABLET PO SCH (09:58)
[2021-04-16] MEDS: AMIODARONE 200 MG TABLET PO SCH (09:58)
[2021-04-16] MEDS: ASPIRIN EC 81 MG TABLET PO SCH (09:58)
[2021-04-17] MEDS: ALBUTEROL/IPRATROPIUM 3 ML NEB RESP TX SCH ×4 (00:46→19:48)
[2021-04-17 06:04] LABS: Basophils % 0.1 % (0.0-0.8); Hematocrit 35.4 VOL% (42.0-52.0); Hemoglobin 11.2 GM/DL (14.0-18.0); Immature Granulocytes % 0.7 %; Immature Granulocytes Absolute 0.09 #; Lymphocytes # 0.6 10*3/uL (1.4-4.0); Lymphocytes % 4.5 % (21.2-54.2); Mean Corpuscular HGB Conc 31.6 GM/DL (32-36); Mean Platelet Volume 9.7 FL (9.6-12.0); Monocytes % 6.5 % (1.7-12.7); Neutrophils % 88.2 % (38.7-73.9); Platelet Count 192 T/CUMM (130-400); Red Blood Count 3.37 MC/CUMM (3.8-5.5); Red Cell Distribution Width 13.6 % (9.3-17.3); White Blood Count 12.3 T/CUMM (4-12)
[2021-04-17 06:50] LABS: Calcium 9.2 MG/DL (8.5-10.1); Osmolality,Calculated 290.7 MOS/KG (273-304); Potassium 3.8 MMOL/L (3.5-5.1)
[2021-04-17 07:02] LABS: Anisocytosis 1+; Band Neutrophils 5 % (0-10); Lymphocytes 6 % (20-55); Macrocytosis Slight; Platelet Estimate Normal; Segmented Neutrophils 78 % (50-85); Spherocytes Few; Total Cells Counted 100
[2021-04-17] MEDS: METOPROLOL SUCCINATE XL 25 MG TABLET PO SCH (09:36)
[2021-04-17] MEDS: AMIODARONE 200 MG TABLET PO SCH (09:36)
[2021-04-17] MEDS: ASPIRIN EC 81 MG TABLET PO SCH (09:36)
[2021-04-17] MEDS: MENTHOL/ZINC OXIDE OINT 71 GM JAR TOP SCH ×2 (09:36→22:35)
[2021-04-17] MEDS: PANTOPRAZOLE 40 MG TABLET PO SCH (09:36)
[2021-04-17] MEDS: MORPHINE 2 MG/1 ML SYRINGE IV PRN ×3 (10:20→23:59)
[2021-04-17] MEDS ORDERED: FUROSEMIDE 20 MG/2 ML VIAL IV ONE (14:27)
[2021-04-17] MEDS: methylPREDNISolone SOD SUC 40 MG/1 ML VIAL IV SCH (17:44)
[2021-04-18] MEDS: ALBUTEROL/IPRATROPIUM 3 ML NEB RESP TX SCH ×4 (00:38→19:42)
[2021-04-18] MEDS: MORPHINE 2 MG/1 ML SYRINGE IV PRN ×2 (05:05→20:36)
[2021-04-18] MEDS: methylPREDNISolone SOD SUC 40 MG/1 ML VIAL IV SCH ×2 (05:05→17:37)
[2021-04-18 05:44] LABS: Basophils % 0.1 % (0.0-0.8); Hematocrit 37.5 VOL% (42.0-52.0); Hemoglobin 11.3 GM/DL (14.0-18.0); Immature Granulocytes % 0.9 %; Immature Granulocytes Absolute 0.09 #; Lymphocytes # 0.3 10*3/uL (1.4-4.0); Lymphocytes % 3.3 % (21.2-54.2); Mean Corpuscular HGB Conc 30.1 GM/DL (32-36); Mean Corpuscular Volume 106.8 FL (87-102); Mean Platelet Volume 9.5 FL (9.6-12.0); Monocytes % 2.2 % (1.7-12.7); Neutrophils % 93.5 % (38.7-73.9); Platelet Count 194 T/CUMM (130-400); Red Blood Count 3.51 MC/CUMM (3.8-5.5); Red Cell Distribution Width 13.4 % (9.3-17.3); White Blood Count 10.3 T/CUMM (4-12)
[2021-04-18 06:05] LABS: Calcium 9.5 MG/DL (8.5-10.1); Osmolality,Calculated 284.3 MOS/KG (273-304); Potassium 4.5 MMOL/L (3.5-5.1)
[2021-04-18 08:43] LABS: Lymphocytes 3 % (20-55); Macrocytosis 1+; Platelet Estimate Adequate; Segmented Neutrophils 93 % (50-85); Total Cells Counted 100
[2021-04-18] MEDS: PANTOPRAZOLE 40 MG TABLET PO SCH (09:54)
[2021-04-18] MEDS: ASPIRIN EC 81 MG TABLET PO SCH (09:54)
[2021-04-18] MEDS: MENTHOL/ZINC OXIDE OINT 71 GM JAR TOP SCH ×2 (09:54→20:39)
[2021-04-18] MEDS: AMIODARONE 200 MG TABLET PO SCH (09:54)
[2021-04-18] MEDS: METOPROLOL SUCCINATE XL 25 MG TABLET PO SCH (09:54)
[2021-04-19] MEDS: ALBUTEROL/IPRATROPIUM 3 ML NEB RESP TX SCH ×2 (01:19→07:26)
[2021-04-19] MEDS: guaiFENesin/CODEINE 5 ML LIQUID PO PRN ×2 (03:33→11:55)
[2021-04-19] MEDS: methylPREDNISolone SOD SUC 40 MG/1 ML VIAL IV SCH (06:34)
[2021-04-19] MEDS: ASPIRIN EC 81 MG TABLET PO SCH (09:09)
[2021-04-19] MEDS: METOPROLOL SUCCINATE XL 25 MG TABLET PO SCH (09:09)
[2021-04-19] MEDS: PANTOPRAZOLE 40 MG TABLET PO SCH (09:09)
[2021-04-19] MEDS: AMIODARONE 200 MG TABLET PO SCH (09:10)
[2021-04-19] MEDS ORDERED: OMEPRAZOLE ODT 20 MG TABLET PO SCH (11:00)
[2021-04-19] MEDS: MORPHINE 2 MG/1 ML SYRINGE IV PRN (11:10)
[2021-04-19] MEDS: MENTHOL/ZINC OXIDE OINT 71 GM JAR TOP SCH (11:13)
[2021-04-19 16:07] VITALS: BP 155/91
== END 2021-04-19 17:32 | DRG 177 ==
LOC: EDBD → EDUNIT# → N.EDINP 13:54 → N.ED 13:54 → SUATTDRO 15:31 → N.5E 18:16 → SUATTDRO 04-08 13:07
PROVIDERS: ADMIT Internal Medicine; ATTEND Internal Medicine